=== PATIENT | male | born 1980 | race Caucasian/White ===

== ENCOUNTER 2017-09-04 07:44 | Observation (INO) | payer OTHER ==
[2017-09-04] MEDS ORDERED: Ketorolac 30 MG/ML SDV IVPUSH ONE (08:09)
[2017-09-04] MEDS ORDERED: Sodium Chloride 0.9% 10 ML Syringe FLUSH PRN (08:09)
[2017-09-04] MEDS ORDERED: Sodium Chloride 0.9% 1,000 ML IV ONE (08:09)
[2017-09-04] MEDS ORDERED: Piperacillin/Tazobactam 4.5 GM in Sodium Chloride 0.9% 100 ML IV ONE (08:45)
--- NOTE | 2017-09-04 08:45 | EDM.PDOC ---
ED HPI GENERAL MEDICAL PROBLEM - General Chief Complaint: Abdominal Pain Stated Complaint: ABDOMINAL PAIN Time Seen by Provider: 09/04/17 08:02 Source of Information: Reports: Patient History Limitations: Reports: No Limitations - History of Present Illness INITIAL COMMENTS - FREE TEXT/NARRATIVE: The patient is a 36-year-old male with a chief complaint of abdominal pain. States it started yesterday. At first it was mild. Located in the right lower abdominal area. Sharp, severe, worse with movement, better with rest. No history of similar symptoms previously. No provoking factor. He's also had progressive loss of appetite. He had some dry heaving during the night, no actual vomiting. Last oral intake was around 11:30 PM last night. Still feels nauseated. Had some diarrhea this morning. No fever. No cough, shortness of breath, or chest pain. No dysuria or hematuria. Right Lower Abdomen Pain Score (Numeric/FACES): 10 - Related Data Allergies Allergy/AdvReac Type Severity Reaction Status Date / Time No Known Allergies Allergy Verified 09/04/17 08:05 Home Meds: Home Meds . [No Known Home Meds] 09/04/17 [History] Past Medical History - Past Surgical History HEENT Surgical History: Reports: Adenoidectomy, Tonsillectomy GI Surgical History: Reports: Hernia, Abdominal Musculoskeletal Surgical History: Reports: Arthroscopic Knee, ORIF Social & Family History - Tobacco Use Smoking Status *Q: Never Smoker - Recreational Drug Use Recreational Drug Use: No ED ROS GENERAL - Review of Systems Review Of Systems: See Below Constitutional: Reports: Malaise, Weakness. Denies: Fever HEENT: Reports: No Symptoms Respiratory: Denies: Shortness of Breath Cardiovascular: Reports: No Symptoms Endocrine: Reports: No Symptoms GI/Abdominal: Reports: Abdominal Pain : Denies: Dysuria Musculoskeletal: Reports: No Symptoms Skin: Reports: No Symptoms Neurological: Reports: No Symptoms ED EXAM, GI/ABD - Physical Exam Exam: See Below Exam Limited By: No Limitations General Appearance: Alert, WD/WN, No Apparent Distress Eyes: Bilateral: Normal Appearance Ears: Normal External Exam Nose: Normal Inspection Throat/Mouth: Normal Inspection, Normal Voice, No Airway Compromise Head: Atraumatic, Normocephalic Neck: Normal Inspection, Supple, Non-Tender, Full Range of Motion Respiratory/Chest: No Respiratory Distress, Lungs Clear, Normal Breath Sounds, No Accessory Muscle Use, Chest Non-Tender Cardiovascular: Normal Peripheral Pulses, Regular Rate, Rhythm, No Murmur GI/Abdominal Exam: Soft, No Distention, Other (Right lower quadrant tenderness, no rebound or guarding) Back Exam: Normal Inspection. No: CVA Tenderness (L), CVA Tenderness (R) Extremities: Normal Inspection Neurological: Alert, Oriented, Normal Cognition, No Motor/Sensory Deficits Psychiatric: Normal Affect, Normal Mood Course - Vital Signs Last Recorded V/S: Last Vital Signs Temp 37.3 C 09/04/17 10:28 Pulse 75 09/04/17 10:28 Resp 18 09/04/17 10:28 BP 143/90 H 09/04/17 10:28 Pulse Ox 96 09/04/17 10:28 - Orders/Labs/Meds Orders: Active Orders 24 hr Category Date Time Status Admission Status [Patient Status] [ADT] Routine ADT 09/04/17 10:37 Active Peripheral IV Care [RC] . DIRECTED Care 09/04/17 08:09 Active Abdomen Pelvis w Cont [CT] Stat Exams 09/04/17 08:41 Taken Sodium Chloride 0.9% [Saline Flush] Med 09/04/17 08:09 Active 10 ml FLUSH ASDIRECTED PRN Peripheral IV Insertion Adult [OM.PC] Routine Oth 09/04/17 08:09 Ordered Schedule Procedure [COMM] Stat Oth 09/04/17 10:37 Ordered Medication Orders Sodium Chloride (Saline Flush) 10 ml FLUSH ASDIRECTED PRN PRN Reason: Keep Vein Open Last Admin: 09/04/17 08:27 Dose: 10 ml Labs: Laboratory Tests 09/04/17 09/04/17 Range/Units 08:25 08:25 WBC 13.84 H (4.23-9.07) K/mm3 RBC 5.29 (4.63-6.08) M/mm3 Hgb 15.5 (13.7-17.5) gm/L Hct 46.0 (40.1-51.0) % MCV 87.0 (79.0-92.2) fl MCH 29.3 (25.7-32.2) pg MCHC 33.7 (32.2-35.5) g/dl RDW Std Deviation 41.8 (35.1-43.9) fL Plt Count 336 (163-337) K/mm3 MPV 9.7 (9.4-12.3) fl Neut % (Auto) 78.1 H (34.0-67.9) % Lymph % (Auto) 11.3 L (21.8-53.1) % [place] % (Auto) 10.0 (5.3-12.2) % Eos % (Auto) 0.1 L (0.8-7.0) Baso % (Auto) 0.1 (0.1-1.2) % Neut # (Auto) 10.82 H (1.78-5.38) K/mm3 Lymph # (Auto) 1.56 (1.32-3.57) K/mm3 [place] # (Auto) 1.38 H (0.30-0.82) K/mm3 Eos # (Auto) 0.02 L (0.04-0.54) K/mm3 Baso # (Auto) 0.01 (0.01-0.08) K/mm3 Sodium 141 (136-145) mEq/L Potassium 4.4 (3.5-5.1) mEq/L Chloride 103 (98-107) mEq/L Carbon Dioxide 28 (21-32) mEq/L Anion Gap 14.4 (5-15) BUN 17 (7-18) mg/dL Creatinine 1.1 (0.7-1.3) mg/dL Est Cr Clr Drug Dosing 107.94 mL/min Estimated GFR (MDRD) > 60 (>60) mL/min BUN/Creatinine Ratio 15.5 (14-18) Glucose 112 H (74-106) mg/dL Calcium 9.7 (8.5-10.1) mg/dL Total Bilirubin 0.9 (0.2-1.0) mg/dL AST 24 (15-37) U/L ALT 49 (16-63) U/L Alkaline Phosphatase 84 (46-116) U/L Total Protein 7.6 (6.4-8.2) g/dl Albumin 3.9 (3.4-5.0) g/dl Globulin 3.7 gm/dL Albumin/Globulin Ratio 1.1 (1-2) Lipase 92 (73-393) U/L Meds: Medications Generic Name Dose Route Start Last Admin Trade Name Freq PRN Reason Stop Dose Admin Sodium Chloride 10 ml 09/04/17 08:09 09/04/17 08:27 Saline Flush FLUSH 10 ml ASDIRECTED PRN Administration Keep Vein Open Discontinued Medications Generic Name Dose Route Start Last Admin Trade Name Freq PRN Reason Stop Dose Admin Hydromorphone HCl 0.5 mg 09/04/17 09:07 09/04/17 09:11 Dilaudid IVPUSH 09/04/17 09:08 0.5 mg NOW ONE Administration Sodium Chloride 1,000 mls @ 1,000 mls/hr 09/04/17 08:09 09/04/17 08:26 Normal Saline IV 09/04/17 09:08 1,000 mls/hr ONETIME ONE Administration Piperacillin Sod/Tazobactam 100 mls @ 200 mls/hr 09/04/17 08:45 09/04/17 08: 58 Sod 4.5 gm/ Sodium Chloride IV 09/04/17 09:14 200 mls/hr ONETIME ONE Administration Iopamidol 125 ml 09/04/17 09:09 09/04/17 09:27 Isovue-300 (61%) IVPUSH 09/04/17 09:10 125 ml ONETIME ONE Administration Ketorolac Tromethamine 30 mg 09/04/17 08:09 09/04/17 08:27 Toradol IVPUSH 09/04/17 08:10 30 mg ONETIME ONE Administration Sodium Chloride 10 ml 09/04/17 09:09 09/04/17 09:27 Saline Flush FLUSH 09/04/17 09:10 10 ml ONETIME ONE Administration - Re-Assessments/Exams Free Text/Narrative Re-Assessment/Exam: 09/04/17 09:00 Labs show mildly elevated WBC. Zosyn ordered, highly suspect appy. 09:50. CT a/p shows uncomplicated acute appendicitis. Dr. Hills called at 09: 50. He will see the patient shortly. Departure - Departure Time of Disposition: 10:49 Disposition: Admitted As Inpatient 66 Clinical Impression: Appendicitis Qualifiers: Appendicitis type: acute appendicitis Acute appendicitis type: with localized peritonitis Qualified Code(s): K35.3 - Acute appendicitis with localized peritonitis - Discharge Information - My Orders Last 24 Hours: My Active Orders 09/04/17 08:09 Peripheral IV Care [RC] . DIRECTED Sodium Chloride 0.9% [Saline Flush] 10 ml FLUSH ASDIRECTED PRN Peripheral IV Insertion Adult [OM.PC] Routine 09/04/17 08:41 Abdomen Pelvis w Cont [CT] Stat - Assessment/Plan Last 24 Hours: My Active Orders 09/04/17 08:09 Peripheral IV Care [RC] . DIRECTED Sodium Chloride 0.9% [Saline Flush] 10 ml FLUSH ASDIRECTED PRN Peripheral IV Insertion Adult [OM.PC] Routine 09/04/17 08:41 Abdomen Pelvis w Cont [CT] Stat
[2017-09-04] MEDS ORDERED: HYDROmorphone 0.5 MG/0.5 ML Syringe IVPUSH ONE (09:07)
[2017-09-04] MEDS ORDERED: Iopamidol 612 MG/ML 150 ML Bottle IVPUSH ONE (09:09)
[2017-09-04] MEDS ORDERED: Sodium Chloride 0.9% 10 ML Syringe FLUSH ONE (09:09)
--- NOTE | 2017-09-04 10:28 | PCM.PREANE ---
Preanesthetic Assessment - Anesthesia/Transfusion/Family Hx Anesthesia History: Prior Anesthesia Without Reaction Family History of Anesthesia Reaction: No Transfusion History: No Prior Transfusion(s) Intubation History: Unknown - Review of Systems General: No Symptoms, Fatigue Pulmonary: No Symptoms Cardiovascular: No Symptoms Gastrointestinal: No Symptoms Neurological: No Symptoms Other: Reports: None - Physical Assessment NPO Status Date: 09/03/17 NPO Status Time: 22:00 Pulse: 75 O2 Sat by Pulse Oximetry: 96 Respiratory Rate: 18 Blood Pressure: 143/90 Temperature: 37.3 C Vital Signs: Last Vital Signs Temp 37.3 C 09/04/17 08:01 Pulse 75 09/04/17 08:01 Resp 18 09/04/17 08:01 BP 143/90 H 09/04/17 08:01 Pulse Ox 96 09/04/17 08:01 Height: 1.88 m Weight: 113.398 kg ASA Class: 1E Mental Status: Alert & Oriented x3 Airway Class: Mallampati = 2 Dentition: Reports: Normal Dentition, Caries Thyro-Mental Finger Breadths: 3 Mouth Opening Finger Breadths: 3 ROM/Head Extension: Full Lungs: Clear to Auscultation, Normal Respiratory Effort Cardiovascular: Regular Rate, Regular Rhythm, No Murmurs - Lab Values: Laboratory Last Values WBC 13.84 K/mm3 (4.23-9.07) H 09/04/17 08:25 RBC 5.29 M/mm3 (4.63-6.08) 09/04/17 08:25 Hgb 15.5 gm/L (13.7-17.5) 09/04/17 08:25 Hct 46.0 % (40.1-51.0) 09/04/17 08:25 MCV 87.0 fl (79.0-92.2) 09/04/17 08:25 MCH 29.3 pg (25.7-32.2) 09/04/17 08:25 MCHC 33.7 g/dl (32.2-35.5) 09/04/17 08:25 RDW Std Deviation 41.8 fL (35.1-43.9) 09/04/17 08:25 Plt Count 336 K/mm3 (163-337) 09/04/17 08:25 MPV 9.7 fl (9.4-12.3) 09/04/17 08:25 Neut % (Auto) 78.1 % (34.0-67.9) H 09/04/17 08:25 Lymph % (Auto) 11.3 % (21.8-53.1) L 09/04/17 08:25 [place] % (Auto) 10.0 % (5.3-12.2) 09/04/17 08:25 Eos % (Auto) 0.1 (0.8-7.0) L 09/04/17 08:25 Baso % (Auto) 0.1 % (0.1-1.2) 09/04/17 08:25 Neut # (Auto) 10.82 K/mm3 (1.78-5.38) H 09/04/17 08:25 Lymph # (Auto) 1.56 K/mm3 (1.32-3.57) 09/04/17 08:25 [place] # (Auto) 1.38 K/mm3 (0.30-0.82) H 09/04/17 08:25 Eos # (Auto) 0.02 K/mm3 (0.04-0.54) L 09/04/17 08:25 Baso # (Auto) 0.01 K/mm3 (0.01-0.08) 09/04/17 08:25 Sodium 141 mEq/L (136-145) 09/04/17 08:25 Potassium 4.4 mEq/L (3.5-5.1) 09/04/17 08:25 Chloride 103 mEq/L (98-107) 09/04/17 08:25 Carbon Dioxide 28 mEq/L (21-32) 09/04/17 08:25 Anion Gap 14.4 (5-15) 09/04/17 08:25 BUN 17 mg/dL (7-18) 09/04/17 08:25 Creatinine 1.1 mg/dL (0.7-1.3) 09/04/17 08:25 Est Cr Clr Drug Dosing 107.94 mL/min 09/04/17 08:25 Estimated GFR (MDRD) > 60 mL/min (>60) 09/04/17 08:25 BUN/Creatinine Ratio 15.5 (14-18) 09/04/17 08:25 Glucose 112 mg/dL (74-106) H 09/04/17 08:25 Calcium 9.7 mg/dL (8.5-10.1) 09/04/17 08:25 Total Bilirubin 0.9 mg/dL (0.2-1.0) 09/04/17 08:25 AST 24 U/L (15-37) 09/04/17 08:25 ALT 49 U/L (16-63) 09/04/17 08:25 Alkaline Phosphatase 84 U/L (46-116) 09/04/17 08:25 Total Protein 7.6 g/dl (6.4-8.2) 09/04/17 08:25 Albumin 3.9 g/dl (3.4-5.0) 09/04/17 08:25 Globulin 3.7 gm/dL 09/04/17 08:25 Albumin/Globulin Ratio 1.1 (1-2) 09/04/17 08:25 Lipase 92 U/L (73-393) 09/04/17 08:25 Above labs reviewed and noted and within acceptable ranges to proceed with scheduled procedure. - Allergies Allergies/Adverse Reactions: Allergies Allergy/AdvReac Type Severity Reaction Status Date / Time No Known Allergies Allergy Verified 09/04/17 08:05 - Anesthesia Plan Pre-Op Medication Ordered: None - Acknowledgements Anesthesia Type Planned: General Anesthesia Pt an Appropriate Candidate for the Planned Anesthesia: Yes Alternatives and Risks of Anesthesia Discussed w Pt/Guardian: Yes Pt/Guardian Understands and Agrees with Anesthesia Plan: Yes PreAnesthesia Questionnaire - Past Surgical History HEENT Surgical History: Reports: Adenoidectomy, Tonsillectomy GI Surgical History: Reports: Hernia, Abdominal Musculoskeletal Surgical History: Reports: Arthroscopic Knee, ORIF - SUBSTANCE USE Smoking Status *Q: Never Smoker Recreational Drug Use History: No - HOME MEDS Home Medications: Home Meds . [No Known Home Meds] 09/04/17 [History] - CURRENT (IN HOUSE) MEDS Current Meds: Current Medications Sodium Chloride (Saline Flush) 10 ml FLUSH ASDIRECTED PRN PRN Reason: Keep Vein Open Last Admin: 09/04/17 08:27 Dose: 10 ml Discontinued Medications Hydromorphone HCl (Dilaudid) 0.5 mg IVPUSH NOW ONE Stop: 09/04/17 09:08 Last Admin: 09/04/17 09:11 Dose: 0.5 mg Sodium Chloride (Normal Saline) 1,000 mls @ 1,000 mls/hr IV ONETIME ONE Stop: 09/04/17 09:08 Last Admin: 09/04/17 08:26 Dose: 1,000 mls/hr Piperacillin Sod/Tazobactam (Sod 4.5 gm/ Sodium Chloride) 100 mls @ 200 mls/hr IV ONETIME ONE Stop: 09/04/17 09:14 Last Admin: 09/04/17 08:58 Dose: 200 mls/hr Iopamidol (Isovue-300 (61%)) 125 ml IVPUSH ONETIME ONE Stop: 09/04/17 09:10 Last Admin: 09/04/17 09:27 Dose: 125 ml Ketorolac Tromethamine (Toradol) 30 mg IVPUSH ONETIME ONE Stop: 09/04/17 08:10 Last Admin: 09/04/17 08:27 Dose: 30 mg Sodium Chloride (Saline Flush) 10 ml FLUSH ONETIME ONE Stop: 09/04/17 09:10 Last Admin: 09/04/17 09:27 Dose: 10 ml
[2017-09-04] MEDS ORDERED: Rocuronium 50 MG/5 ML Vial ONE (11:29)
[2017-09-04] MEDS ORDERED: Dexamethasone 4 MG/ML 5 ML MDV ONE (11:29)
[2017-09-04] MEDS ORDERED: HYDROmorphone 1 MG/ML Syringe ONE ×2 (11:29→12:44)
[2017-09-04] MEDS ORDERED: Ondansetron 4 MG/2 ML SDV ONE (11:29)
[2017-09-04] MEDS ORDERED: Ketorolac 30 MG/ML SDV ONE (11:29)
[2017-09-04] MEDS ORDERED: Lactated Ringers 2,000 ML ONE (11:29)
[2017-09-04] MEDS ORDERED: Lidocaine 1% 4 ML ONE (11:29)
[2017-09-04] MEDS ORDERED: Lidocaine 1% 30 ML SDV ONE (11:29)
[2017-09-04] MEDS ORDERED: Bupivacaine 0.25%/EPINEPHrine 1:200,000 30 ML SDV ONE (11:29)
[2017-09-04] MEDS ORDERED: Propofol 200 MG/20 ML SDV ONE ×2 (11:30→12:34)
[2017-09-04] MEDS ORDERED: Midazolam 1 MG/ML 2 ML SDV ONE (11:30)
[2017-09-04] MEDS ORDERED: fentaNYL 250 MCG/5 ML SDV ONE (11:31)
[2017-09-04] MEDS ORDERED: Ondansetron 4 MG/2 ML SDV IVPUSH PRN (12:33)
[2017-09-04] MEDS ORDERED: fentaNYL 100 MCG/2 ML SDV IVPUSH PRN (12:33)
[2017-09-04] MEDS ORDERED: HYDROmorphone 0.5 MG/0.5 ML Syringe IVPUSH PRN (12:33)
[2017-09-04] MEDS ORDERED: Succinylcholine 200 MG/10 ML MDV ONE (12:44)
[2017-09-04] MEDS ORDERED: Neostigmine Methylsulfate 1 MG/ML 5 ML Syringe ONE (13:02)
--- NOTE | 2017-09-04 13:41 | PCM.POSTAN ---
POST ANESTHESIA ASSESSMENT - MENTAL STATUS Mental Status: Alert - VITAL SIGNS Pulse Rate: 89 SaO2: 95 Resp Rate: 20 Blood Pressure: 129/68 Temperature: 37.0 C - RESPIRATORY Respiratory Status: Respiratory Rate WNL, Airway Patent, O2 Saturation Stable, Supplemental Oxygen - CARDIOVASCULAR CV Status: Pulse Rate WNL, Blood Pressure Stable - GASTROINTESTINAL GI Status: No Symptoms - POST OP HYDRATION Hydration Status: Adequate & Stable
[2017-09-04] MEDS ORDERED: Albuterol 6.7 GM Inhaler INH ONE (13:46)
[2017-09-04] MEDS ORDERED: Lactated Ringers 1,000 ML IV SCH (17:45)
--- NOTE | 2017-09-04 18:25 | PCM48HPAN ---
Post Anesthesia Note - EVALUATION WITHIN 48HRS OF ANESTHETIC Vital Signs in Normal Range: Yes Patient Participated in Evaluation: Yes Respiratory Function Stable: Yes Airway Patent: Yes Cardiovascular Function Stable: Yes Hydration Status Stable: Yes Pain Control Satisfactory: Yes Nausea and Vomiting Control Satisfactory: Yes Mental Status Recovered: Yes
[2017-09-04] MEDS: Piperacillin/Tazobactam 4.5 GM in Sodium Chloride 0.9% 100 ML IV SCH (18:38)
[2017-09-05] MEDS: Piperacillin/Tazobactam 4.5 GM in Sodium Chloride 0.9% 100 ML IV SCH ×2 (02:02→08:00)
--- NOTE | 2017-09-05 16:33 | PN ---
DATE OF SERVICE: 09/05/2017 Lg is now 1 day out from his open appendectomy. He is doing well and says he feels much better than he did when he came in. His pain is well controlled on just minimal pain relief. He wishes to go home, feels good, and feels he can convalesce at home better than he can in the hospital, so he will be discharged today. He is eating well and he has also passed some gas. CHELLE /[id number]
--- NOTE | 2017-09-05 19:34 | HP ---
DATE OF ADMISSION: 09/04/2017 CHIEF COMPLAINT: Abdominal pain of one day duration. HISTORY OF PRESENT ILLNESS: This 36-year-old gentleman is admitted at this time with a diagnosis of acute appendicitis by CT. He began having discomfort on the day prior to admission, which increased throughout the night and brought him to the ER today. He has had really no nausea and vomiting. He has had a bowel movement since the onset of pain. The pain he states is in his right mid abdomen lateral to his umbilicus and there is pain on any motion or coughing or sneezing. Seen in the emergency room. [place] [address]. His hemoglobin is normal. A CT was performed, which demonstrated a large inflamed appendix in the right retrocecal area at about the level of the umbilicus. The procedure was explained to the patient as well as the scope, risks, nature, and benefits, and he is in agreement and understands he will have an open appendectomy. Part of this is his size and the other part is that he has had an unknown size piece of Marlex mesh placed in his umbilical area for an umbilical hernia in the past few years. For that reason, we will do an open appendectomy. The procedure has been explained to him as well as scope, risks, nature, and benefits of the procedure and we will proceed with an open appendectomy. CHELLE /[id number]
--- NOTE | 2017-09-05 19:48 | OR ---
DATE OF OPERATION: 09/04/2017 SURGEON: Alexis Hills OPERATION PERFORMED: Open appendectomy. PREOPERATIVE DIAGNOSIS: Acute appendicitis. POSTOPERATIVE DIAGNOSIS: Acute appendicitis. COPY EDITOR: OR staff. ANESTHESIOLOGIST: Haritha Woodard CRNA. FINDINGS AT SURGERY: An appendix inflamed obviously at its tip very erythematous and edematous, was excised. DESCRIPTION OF PROCEDURE: Under satisfactory anesthesia with the patient lying in the supine position with arms extended. The abdomen was prepped with the chlorhexidine alcohol prep after satisfactory endotracheal intubation. The site of incision was at the level of the umbilicus, which is the position of the appendix. Although the patient's weight was in the 200 plus pounds, it was elected to proceed over that point lateral to the lateral rectus border. Incision of approximately 7-8 cm in length was made down through the skin and subcutaneous tissue after the skin had been infiltrated with a mixture of 50:50 of 1% Xylocaine and 0.25% Marcaine with epinephrine. Skin was incised and subcu was incised down to the fascia, which was then dissected to allow examination, and the external oblique muscle was divided in the course of its fibers as well as the internal oblique performing standard gridiron incision and these were then enlarged. The transversus abdominis and the perineum were incised. A small amount of fluid extruded and was cloudy and the cultures were taken. The incision was enlarged. The cecum was identified and brought up into the operative field along with the appendix with some easily mobile adhesions to the retroperitoneum. With the appendix thus brought into the operative field, the mesoappendix was then doubly ligated with 2-0 Vicryl and divided along the appendix, and an extra clip was placed at the level of the sutures to ensure complete hemostasis. The appendix was then transected from the cecum using the ALEXIA 55 blue cartridge stapler. The specimen was submitted to the pathologist for examination. The viscera were then replaced back into the abdominal cavity. The internal oblique and the transversus abdominis were closed with a running 0 PDS suture and the external oblique was similarly closed with a running 0 PDS suture. The wound was irrigated. Subcu was approximated with 1 suture of 0 PDS in Kelvin fascia and the skin was then approximated using a stapler. The patient has tolerated the procedure well and returned to the recovery area in good condition. ANESTHESIA: General, ET ESTIMATED BLOOD LOSS: 20 cc MMODAL /[id number] MTDNeida
--- NOTE | 2017-09-05 21:54 | DISCH ---
ADMISSION DATE: 09/04/2017 DISCHARGE DATE: 09/05/2017 DISCHARGE DIAGNOSIS: Acute appendicitis. OPERATION: Appendectomy. COMPLICATIONS: None. COURSE IN HOSPITAL: The patient was admitted from the emergency room and taken to the operating room where an open appendectomy was performed without incident. He has had a short postoperative course and had 24 hours after his surgery, wishes to be discharged, and he is doing well. His pain is controlled. He is eating and he was advised to go home and take it easy for several days and probably not do any heavy work for the next 3 weeks. He will be seen in clinic for his clip removal in about 10 days. He is also to keep that wound dry for at least another 24 hours. FINAL DIAGNOSIS:Acute appendicitis DISCHARGE MEDICATIONS:None DIET:As Tolerated ACTIVITY:No lifting over 25 lbs for three weeks FOLLOW-UP:!0 Surgical clinic CONDITION ON DISCHARGE:Good MMODAL /[id number] MTDNeida
--- NOTE | 2017-09-06 16:33 | CT ---
CT abdomen and pelvis Technique: Multiple axial sections were obtained from above the dome of the diaphragm inferiorly through the pubic symphysis. Intravenous contrast was utilized. No oral contrast has been given. Comparison: No prior abdominal imaging. Findings: Appendix is mildly dilated with surrounding inflammatory change compatible with appendicitis. Visualized lung bases show nothing acute. Liver shows diffuse fatty infiltration without focal abnormality. Gallbladder shows no calcified gallstones. Spleen appears within normal limits. Adrenal glands show no nodule. Pancreas is within normal limits. Kidneys show symmetric contrast enhancement without hydronephrosis or mass. Gallbladder shows no calcified gallstones. Aorta shows no aneurysmal dilatation. No retroperitoneal adenopathy or mesenteric abnormalities are seen. No pelvic mass or adenopathy is seen. Delayed images show contrast within the distal ureters and within the bladder. No free fluid is seen. Bone window settings were reviewed which appear within normal limits for the patient's age. Impression: 1. Findings compatible with appendicitis. 2. Other normal findings as noted above. Diagnostic code #5 I agree with preliminary report issued by [facility] ([facility] report finalized on 09/04/17, 10:47 AM Central Time)
== END 2017-09-05 12:45 | disposition home or self-care (01) ==
LOC: JD.ED 07:44 → JD.SDS 10:37 → JD.MS 14:45
PROVIDERS: ADMIT Surgery; ATTEND Surgery
DX: K35.3 Acute appendicitis with localized peritonitis (principal); Z98.890 Other specified postprocedural states
CPT/HCPCS: 36415; 44950; 74177; 80053; 83690; 85025; 87075; 87205; 96365; 96375; 99285; A9270; J0330; J1100; J1170; J1885; J2250; J2405; J2543; J2710; J3010; J7030; J7040; J7050; J7120; Q9967; 00840; 88304; J2704

== ENCOUNTER 2022-05-09 17:29 | Emergency (ER) | payer OTHER ==
[2022-05-09] MEDS ORDERED: Dexamethasone 4 MG/ML 5 ML MDV IV ONE (18:36)
[2022-05-09] MEDS ORDERED: Ketorolac 30 MG/ML SDV IVPUSH ONE (18:42)
== END 2022-05-09 19:48 | disposition home or self-care (01) ==
LOC: JD.ED 17:29
DX: K08.89 Other specified disorders of teeth and supporting structures (principal); Z90.49 Acquired absence of other specified parts of digestive tract
CPT/HCPCS: 96374; 96375; 99282; J1100; J1885

== ENCOUNTER 2024-02-07 06:15 | Day surgery (SDC) | payer OTHER ==
[~2024-02-07 06:15] MED LIST: Lactated Ringers 1,000 ML IV SCH; Sodium Chloride 0.9% 10 ML Syringe FLUSH PRN; Sodium Chloride 0.9% 10 ML Syringe FLUSH SCH
[2024-02-07] MEDS: Lactated Ringers 1,000 ML IV SCH (06:30)
[2024-02-07] MEDS ORDERED: fentaNYL 100 MCG/2 ML SDV ONE (06:59)
[2024-02-07] MEDS ORDERED: Propofol 200 MG/20 ML SDV ONE (06:59)
[2024-02-07] MEDS ORDERED: Midazolam 1 MG/ML 2 ML SDV ONE (06:59)
[2024-02-07] MEDS ORDERED: ceFAZolin 2 GM Vial ONE (07:09)
[2024-02-07] MEDS ORDERED: fentaNYL 100 MCG/2 ML SDV IVPUSH PRN (07:09)
[2024-02-07] MEDS ORDERED: Ondansetron 4 MG/2 ML SDV IVPUSH PRN (07:09)
[2024-02-07] MEDS ORDERED: HYDROmorphone 0.5 MG/0.5 ML Syringe IVPUSH PRN (07:09)
[2024-02-07] MEDS: Bupivacaine 0.25% 10 ML SDV ONE (07:25)
[2024-02-07] MEDS: Lidocaine 1% 10 ML MDV ONE (07:25)
== END 2024-02-07 07:55 | disposition home or self-care (01) ==
LOC: JD.SDS 06:15
PROVIDERS: ATTEND Orthopaedic Surgery
DX: D21.11 Benign neoplasm of connective and other soft tissue of right upper limb, including shoulder (principal); E78.2 Mixed hyperlipidemia; Z79.899 Other long term (current) drug therapy
CPT/HCPCS: 26111; 88305; J0690; J2250; J2704; J3010; J3490; J7120; 00400

== ENCOUNTER 2025-08-23 12:43 | Emergency (ER) | payer OTHER | END 2025-08-23 15:40 | disposition left against medical advice (07) | LOC: JD.ED 12:43 | DX: S61.412A Laceration without foreign body of left hand, initial encounter (principal); Z90.49 Acquired absence of other specified parts of digestive tract; W26.0XXA Contact with knife, initial encounter | CPT/HCPCS: 99282 ==